=== PATIENT | female | born 1985 | race Caucasian/White ===

== ENCOUNTER → 2016-07-23 | Outpatient (CLI) | payer MEDICAID | END | disposition home or self-care (01) | LOC: LABWHC1 12:30 | PROVIDERS: ATTEND Internal Medicine Endocrinology, Diabetes & Metabolism | DX: D35.2 Benign neoplasm of pituitary gland (principal) | CPT/HCPCS: 36415; 84146 ==

== ENCOUNTER → 2016-10-07 | Outpatient (CLI) | payer MEDICAID ==
[2016-10-07 11:27] LABS: Prolactin 224.9 ng/mL (3.0-18.6)
== END | disposition home or self-care (01) ==
LOC: LABWHC1 10:10
PROVIDERS: ATTEND Internal Medicine Endocrinology, Diabetes & Metabolism
DX: D35.2 Benign neoplasm of pituitary gland (principal)
CPT/HCPCS: 36415; 82024; 82533; 84146; 84439; 84443

== ENCOUNTER → 2017-04-10 | Outpatient (CLI) | payer MEDICAID | END | disposition home or self-care (01) | LOC: LABWHC1 08:31 | PROVIDERS: ATTEND Internal Medicine Endocrinology, Diabetes & Metabolism | DX: D35.2 Benign neoplasm of pituitary gland (principal) | CPT/HCPCS: 36415; 84146 ==

== ENCOUNTER → 2017-08-25 | Outpatient (CLI) | payer MEDICAID ==
[2017-08-25 18:07] LABS: T4, Free (Free Thyroxine) 0.95 ng/dL (0.78-2.19)
== END | disposition home or self-care (01) ==
LOC: LABWHC1 16:46
PROVIDERS: ATTEND Internal Medicine Endocrinology, Diabetes & Metabolism
DX: D35.2 Benign neoplasm of pituitary gland (principal)
CPT/HCPCS: 36415; 84439; 84443

== ENCOUNTER → 2018-01-05 | Outpatient (CLI) | payer MEDICAID | END | disposition home or self-care (01) | LOC: LABWHC1 16:13 | PROVIDERS: ATTEND Internal Medicine Endocrinology, Diabetes & Metabolism | DX: D35.2 Benign neoplasm of pituitary gland (principal); E03.8 Other specified hypothyroidism | CPT/HCPCS: 36415; 84146; 84443 ==

== ENCOUNTER → 2018-07-15 | Outpatient (CLI) | payer MEDICAID ==
--- NOTE | 2018-07-15 10:58 | MR ---
EXAMINATION TYPE: MR pituitary wo/w con DATE OF EXAM: 07/15/2018 COMPARISON: 12/05/2011 MRI pituitary HISTORY: Benign neoplasm pituitary gland. History of elevated prolactin in 2011. TECHNIQUE: Multiplanar, multisequence images of the pituitary was performed without and with IV contrast, utiliz ing 5.5 mL intravenous Gadavist . FINDINGS: Within the right lateral aspect of the pituitary gland there is ar T2 hypointense and T1 hy pointense mass measuring approximately 5.3 x 5.7 x 5.6 cm. This abuts the right internal carotid mine ry and cavernous sinus. There is delayed enhancement of this mass in comparison with the surrounding pituitary and seen on sagittal postcontrast T1-weighted nonfat sat image 7. The remainder the pituita ry gland enhances homogeneously. There is no impression on the optic chiasm or extension beyond the s blue turcica. Hypothalamus is unremarkable as is the pituitary stalk. Limited images of the remainder of the surrounding brain parenchyma and calvarium are unremarkable. IMPRESSION: Right lateral pituitary microadenoma measuring up to 5.7 cm in maximum dimension abutting the cavernous sinus and right internal carotid artery without extension above the suprasellar cister n. No mass effect on the optic chiasm or pituitary stalk.
== END | disposition home or self-care (01) ==
LOC: RADMRIMAIN 07:49
PROVIDERS: ATTEND Internal Medicine Endocrinology, Diabetes & Metabolism
DX: D35.2 Benign neoplasm of pituitary gland (principal)
CPT/HCPCS: 70553; A9585

== ENCOUNTER → 2018-07-23 | Outpatient (CLI) | payer MEDICAID ==
[2018-07-23 19:46] LABS: T4, Free (Free Thyroxine) 1.6 ng/dL (0.80-1.80)
== END | disposition home or self-care (01) ==
LOC: LABWHC1 12:11
PROVIDERS: ATTEND Internal Medicine Endocrinology, Diabetes & Metabolism
DX: D35.2 Benign neoplasm of pituitary gland (principal)
CPT/HCPCS: 36415; 82024; 82533; 84146; 84305; 84439; 84443

== ENCOUNTER → 2018-08-27 | Outpatient (CLI) | payer MEDICAID ==
[2018-08-27 19:08] LABS: Progesterone 9.3 ng/mL
== END ==
LOC: LABWHC1 12:39
PROVIDERS: ATTEND Obstetrics & Gynecology
DX: E22.1 Hyperprolactinemia (principal); N91.2 Amenorrhea, unspecified
CPT/HCPCS: 36415; 82670; 84144; 84146

== ENCOUNTER → 2018-11-03 | Outpatient (CLI) | payer MEDICAID | END | disposition home or self-care (01) | LOC: LABWHC1 08:32 | PROVIDERS: ATTEND Internal Medicine Endocrinology, Diabetes & Metabolism | DX: D35.2 Benign neoplasm of pituitary gland (principal) | CPT/HCPCS: 36415; 84146; 84439 ==

== ENCOUNTER → 2019-10-14 | Outpatient (CLI) | payer MEDICAID ==
[2019-10-14 15:42] LABS: T4, Free (Free Thyroxine) 1.2 ng/dL (0.80-1.80)
[2019-10-14 16:12] LABS: Prolactin 195.4 ng/mL (2.8-29.2)
== END | disposition home or self-care (01) ==
LOC: LABWHC1 09:29
PROVIDERS: ATTEND Internal Medicine Endocrinology, Diabetes & Metabolism
DX: D35.2 Benign neoplasm of pituitary gland (principal)
CPT/HCPCS: 36415; 84146; 84439; 84480

== ENCOUNTER → 2020-03-19 | Outpatient (CLI) | payer MEDICAID | END | disposition home or self-care (01) | LOC: LABWHC1 12:44 | PROVIDERS: ATTEND Family Medicine | DX: Z20.828 Contact with and (suspected) exposure to other viral communicable diseases (principal) | CPT/HCPCS: U0003; C9803 ==

== ENCOUNTER → 2020-07-09 | Outpatient (CLI) | payer MEDICAID ==
[2020-07-09 14:47] LABS: T4, Free (Free Thyroxine) 1.8 ng/dL (0.80-1.80)
[2020-07-09 16:06] LABS: Prolactin 223.3 ng/mL (2.8-29.2)
== END | disposition home or self-care (01) ==
LOC: LABWHC1 08:09
PROVIDERS: ATTEND Internal Medicine Endocrinology, Diabetes & Metabolism
DX: E03.8 Other specified hypothyroidism (principal); D35.2 Benign neoplasm of pituitary gland
CPT/HCPCS: 36415; 82024; 82533; 84146; 84439; 84443

== ENCOUNTER → 2021-12-16 | Outpatient (CLI) | payer MEDICAID | END | disposition home or self-care (01) | LOC: LABWHC1 09:53 | PROVIDERS: ATTEND Internal Medicine Endocrinology, Diabetes & Metabolism | DX: D35.2 Benign neoplasm of pituitary gland (principal) | CPT/HCPCS: 36415; 84146 ==

== ENCOUNTER → 2022-04-22 | Outpatient (CLI) | payer MEDICAID ==
[2022-04-22 19:25] LABS: African American GFR (CKD) 94.7 (60.0-200.0); Albumin/Globulin Ratio 2.08 (1.60-3.17); Anion Gap 15.4 mmol/L (10.00-18.00); BUN/Creat Ratio 13.22 Ratio (12.00-20.00); Blood Urea Nitrogen 11.9 mg/dL (9.0-27.0); Carbon Dioxide 22.6 mmol/L (20.0-27.5); Globulin 2.4 g/dL (1.6-3.3); Non-African American GFR(CKD) 81.7 (60.0-200.0); Potassium 4.6 mmol/L (3.5-5.5); Prolactin 28.3 ng/mL (2.800-29.200); T4, Free (Free Thyroxine) 1.43 ng/dL (0.800-1.800); Total Bilirubin 0.6 mg/dL (0.30-1.20); Total Protein 7.4 g/dL (6.2-8.2)
== END | disposition home or self-care (01) ==
LOC: LABWHC1 13:02
PROVIDERS: ATTEND Internal Medicine Endocrinology, Diabetes & Metabolism
DX: D35.2 Benign neoplasm of pituitary gland (principal)
CPT/HCPCS: 36415; 80053; 82024; 82533; 84146; 84439; 84443; 84481

== ENCOUNTER → 2022-05-27 | Outpatient (CLI) | payer MEDICAID ==
[2022-05-27 10:31] LABS: Estradiol 30.1 pg/mL; Prolactin 51.9 ng/mL (2.800-29.200)
[2022-05-27 10:38] LABS: African American GFR (CKD) 115.2 (60.0-200.0); Albumin 4.4 g/dL (3.8-4.9); Albumin/Globulin Ratio 1.66 (1.60-3.17); Anion Gap 11.2 mmol/L (10.00-18.00); BUN/Creat Ratio 13.46 Ratio (12.00-20.00); Blood Urea Nitrogen 10.3 mg/dL (9.0-27.0); Calcium 9.6 mg/dL (8.7-10.3); Carbon Dioxide 21.9 mmol/L (20.0-27.5); Follicle Stimulating Hormone 3.1 mIU/mL; Globulin 2.7 g/dL (1.6-3.3); Luteinizing Hormone 1.6 mIU/mL; Non-African American GFR(CKD) 99.4 (60.0-200.0); Potassium 4.5 mmol/L (3.5-5.5); T4, Free (Free Thyroxine) 1.89 ng/dL (0.800-1.800); Total Bilirubin 0.8 mg/dL (0.30-1.20); Total Protein 7.1 g/dL (6.2-8.2)
== END | disposition home or self-care (01) ==
LOC: LABWHC1 07:06
PROVIDERS: ATTEND Internal Medicine Endocrinology, Diabetes & Metabolism
DX: D35.2 Benign neoplasm of pituitary gland (principal)
CPT/HCPCS: 36415; 80053; 82024; 82533; 82670; 83001; 83002; 84146; 84305; 84439; 84443

== ENCOUNTER → 2022-09-26 | Outpatient (CLI) | payer MEDICAID | END | disposition home or self-care (01) | LOC: LABWHC1 08:23 | PROVIDERS: ATTEND Internal Medicine Endocrinology, Diabetes & Metabolism | DX: D35.2 Benign neoplasm of pituitary gland (principal); E03.8 Other specified hypothyroidism ==

== ENCOUNTER → 2022-12-24 | Outpatient (CLI) | payer MEDICAID ==
[2022-12-24 12:02] LABS: HCT 42.6 % (37.2-46.3); HGB 14.4 d/dL (12.0-15.0); MCH 32.4 pg (27.0-32.0); MCHC 33.8 d/dL (32.0-37.0); MCV 95.9 FL (80.0-97.0); Mean Platelet Volume 11.5 FL (9.5-12.2); NRBC Per 100 WBC 0 X 10*3/uL (0.00-0.01); Platelet Count 233 X 10*3/uL (140-440); RBC 4.44 X 10*6/uL (4.10-5.20); RDW 12.2 % (11.5-14.5); WBC 5.47 X 10*3/uL (4.50-10.00)
[2022-12-24 12:17] LABS: ALT 12 U/L (8-44); AST 12 U/L (13-35); Albumin 4.7 d/dL (3.8-4.9); Albumin/Globulin Ratio 2.14 Ratio (1.60-3.17); Alkaline Phosphatase 55 U/L (41-126); BUN/Creat Ratio 15.67 Ratio (12.00-20.00); Blood Urea Nitrogen 14.1 mg/dL (9.0-27.0); Calcium 9.6 mg/dL (8.7-10.3); Carbon Dioxide 24.2 mmol/L (21.6-31.8); Chloride 106 mmol/L (96-109); Globulin 2.2 d/dL (1.6-3.3); Glucose 74 mg/dL (70-110); Potassium 4.5 mmol/L (3.5-5.5); Sodium 140 mmol/L (135-145); T4, Free (Free Thyroxine) 1.06 ng/dL (0.80-1.80); Total Bilirubin 1.2 mg/dL (0.3-1.2); Total Protein 6.9 d/dL (6.2-8.2)
== END | disposition home or self-care (01) ==
LOC: LABWHC1 09:13
PROVIDERS: ATTEND Internal Medicine Endocrinology, Diabetes & Metabolism
DX: D35.2 Benign neoplasm of pituitary gland (principal); E03.8 Other specified hypothyroidism
CPT/HCPCS: 36415; 80053; 82670; 83001; 83002; 84146; 84439; 84443; 85027

== ENCOUNTER → 2023-03-06 | Outpatient (CLI) | payer MEDICAID ==
[2023-03-06 16:50] LABS: Estradiol 82.4 pg/mL; T4, Free (Free Thyroxine) 1.35 ng/dL (0.80-1.80)
== END | disposition home or self-care (01) ==
LOC: LABWHC1 08:28
PROVIDERS: ATTEND Internal Medicine Endocrinology, Diabetes & Metabolism
DX: D35.2 Benign neoplasm of pituitary gland (principal)
CPT/HCPCS: 36415; 82670; 84146; 84439; 84443

== ENCOUNTER → 2023-06-15 | Outpatient (CLI) | payer MEDICAID ==
[2023-06-15 15:09] LABS: T4, Free (Free Thyroxine) 1.31 ng/dL (0.80-1.80)
[2023-06-15 15:49] LABS: Prolactin 49.6 ng/mL (2.800-29.200)
== END | disposition home or self-care (01) ==
LOC: LABWHC1 08:30
PROVIDERS: ATTEND Internal Medicine Endocrinology, Diabetes & Metabolism
DX: D35.2 Benign neoplasm of pituitary gland (principal)
CPT/HCPCS: 36415; 82024; 82533; 84146; 84439; 84443

== ENCOUNTER → 2023-10-21 | Outpatient (CLI) | payer MEDICAID ==
[2023-10-21 15:09] LABS: T4, Free (Free Thyroxine) 1.49 ng/dL (0.80-1.80)
[2023-10-21 16:17] LABS: Prolactin 47.8 ng/mL (2.800-29.200)
== END | disposition home or self-care (01) ==
LOC: LABWHC1 08:43
PROVIDERS: ATTEND Internal Medicine Endocrinology, Diabetes & Metabolism
DX: E03.8 Other specified hypothyroidism (principal); D35.2 Benign neoplasm of pituitary gland
CPT/HCPCS: 36415; 82533; 84146; 84305; 84439; 84443

== ENCOUNTER → 2024-02-15 | Outpatient (CLI) | payer MEDICAID ==
[2024-02-15 15:52] LABS: Prolactin 58.3 ng/mL (2.800-29.200)
== END | disposition home or self-care (01) ==
LOC: LABWHC1 08:39
PROVIDERS: ATTEND Internal Medicine Endocrinology, Diabetes & Metabolism
DX: D35.2 Benign neoplasm of pituitary gland (principal); E03.8 Other specified hypothyroidism
CPT/HCPCS: 36415; 84146; 84443

== ENCOUNTER → 2024-03-24 | Outpatient (CLI) | payer MEDICAID ==
[2024-03-24 17:27] LABS: T4, Free (Free Thyroxine) 1.61 ng/dL (0.80-1.80)
== END | disposition home or self-care (01) ==
LOC: LABWHC1 09:45
PROVIDERS: ATTEND Internal Medicine Endocrinology, Diabetes & Metabolism
DX: D35.2 Benign neoplasm of pituitary gland (principal)
CPT/HCPCS: 36415; 84436; 84439; 84443; 84480

== ENCOUNTER → 2024-04-22 | Outpatient (CLI) | payer MEDICAID ==
[2024-04-22 17:12] LABS: T4, Free (Free Thyroxine) 1.39 ng/dL (0.80-1.80)
[2024-04-22 17:27] LABS: Prolactin 84.1 ng/mL (2.800-29.200)
== END | disposition home or self-care (01) ==
LOC: LABWHC1 10:09
PROVIDERS: ATTEND Internal Medicine Endocrinology, Diabetes & Metabolism
DX: D35.2 Benign neoplasm of pituitary gland (principal)
CPT/HCPCS: 36415; 84146; 84436; 84439; 84443; 84480

== ENCOUNTER → 2024-05-12 | Outpatient (CLI) | payer MEDICAID ==
[2024-05-12 15:04] LABS: HCT 41.5 % (37.2-46.3); HGB 13.4 g/dL (12.0-15.0); MCH 30.2 pg (27.0-32.0); MCHC 32.3 g/dL (32.0-37.0); MCV 93.5 FL (80.0-97.0); Mean Platelet Volume 9.6 FL (9.5-12.2); NRBC Per 100 WBC 0 X 10*3/uL (0.00-0.01); Platelet Count 325 X 10*3/uL (140-440); RBC 4.44 X 10*6/uL (4.10-5.20); RDW 13.1 % (11.5-14.5); WBC 9.87 X 10*3/uL (4.50-10.00)
[2024-05-12 15:23] LABS: Hepatitis B Surface Antigen Nonreactive (Nonreactive); Hepatitis C IgG Antibody Nonreactive (Nonreactive)
[2024-05-12 21:06] LABS: HIV 2 AB Non-Reactive (Non-Reactive); HIV AB P24 Non-Reactive (Non-Reactive); HIV P24 AG Non-Reactive (Non-Reactive)
== END | disposition home or self-care (01) ==
LOC: LABWHC1 11:00
PROVIDERS: ATTEND Obstetrics & Gynecology Obstetrics
DX: Z34.81 Encounter for supervision of other normal pregnancy, first trimester (principal); R14.0 Abdominal distension (gaseous); N64.4 Mastodynia; R68.83 Chills (without fever); F41.8 Other specified anxiety disorders; L85.3 Xerosis cutis; R37 Sexual dysfunction, unspecified; R53.83 Other fatigue; L65.9 Nonscarring hair loss, unspecified; E06.3 Autoimmune thyroiditis; N95.1 Menopausal and female climacteric states; E03.9 Hypothyroidism, unspecified; M25.50 Pain in unspecified joint; R41.3 Other amnesia; E34.50 Androgen insensitivity syndrome, unspecified
CPT/HCPCS: 36415; 85027; 86762; 86780; 86803; 86850; 86900; 86901; 87340; 87390

== ENCOUNTER → 2024-05-31 | Outpatient (CLI) | payer MEDICAID ==
[2024-05-31 19:45] LABS: T4, Free (Free Thyroxine) 1.16 ng/dL (0.80-1.80)
== END | disposition home or self-care (01) ==
LOC: LABWHC1 14:53
PROVIDERS: ATTEND Internal Medicine Endocrinology, Diabetes & Metabolism
DX: E03.8 Other specified hypothyroidism (principal)
CPT/HCPCS: 36415; 84439; 84443; 84480

== ENCOUNTER → 2024-08-02 | Outpatient (CLI) | payer MEDICAID ==
[2024-08-02 13:12] LABS: T4, Free (Free Thyroxine) 1.35 ng/dL (0.80-1.80)
== END | disposition home or self-care (01) ==
LOC: LABWHC1 07:28
PROVIDERS: ATTEND Internal Medicine Endocrinology, Diabetes & Metabolism
DX: E03.8 Other specified hypothyroidism (principal)
CPT/HCPCS: 36415; 84439; 84443; 84480

== ENCOUNTER 2024-10-31 05:51 | Inpatient (IN) | payer MEDICAID ==
[2024-10-31] MEDS ORDERED: CARBOPROST TROMETHAMINE 250 MCG/ML 1 ML AMP IM PRN (06:28)
[2024-10-31] MEDS ORDERED: METHYLERGONOVINE 0.2 MG/ML 1 ML AMP IM PRN (06:28)
[2024-10-31] MEDS ORDERED: miSOPROStoL 200 MCG TAB PO PRN (06:28)
[2024-10-31] MEDS ORDERED: TERBUTALINE 1 MG/ML VIAL SQ PRN (06:28)
[2024-10-31] MEDS ORDERED: miSOPROStoL 200 MCG TAB RECTAL PRN (06:28)
[2024-10-31] MEDS ORDERED: TRANEXAMIC 1,000 MG/100ML-NACL 1,000 MG in EMPTY BAG 1 BAG IV PRN (06:28)
[2024-10-31] MEDS ORDERED: OXYTOCIN 10 UNIT/ML 1 ML VIAL IM PRN (06:28)
[2024-10-31] MEDS: LACTATED RINGERS 1,000 ML IV SCH (06:45)
[2024-10-31] MEDS: OXYTOCIN 30 UNITS/500 ML NS 30 UNIT in SALINE 1 500ML.BAG IV SCH (07:02)
[2024-10-31 07:17] LABS: Basophils # (A) 0.08 10*3/uL (0.00-0.10); Basophils % (A) 0.9 %; Eosinophils # (A) 0.06 10*3/uL (0.04-0.35); Eosinophils % (A) 0.7 %; HCT 37.1 % (37.2-46.3); HGB 13.2 g/dL (12.0-15.0); Lymphocytes % (A) 20.8 %; MCH 34.5 pg (27.0-32.0); MCHC 35.6 g/dL (32.0-37.0); MCV 96.9 fL (80.0-97.0); Mean Platelet Volume 11.6 fL (9.5-12.2); Monocytes # (A) 0.77 10*3/uL (0.20-1.00); Monocytes % (A) 8.4 %; Neutrophils # (A) 6.25 10*3/uL (1.80-7.70); Neutrophils % (A) 68.4 %; Platelet Count 238 10*3/uL (140-440); RBC 3.83 10*6/uL (4.10-5.20); RDW 13.5 % (11.5-14.5); WBC 9.13 10*3/uL (4.50-10.00)
[2024-10-31] MEDS ORDERED: SODIUM CHLORIDE 0.9% 250 ML BAG ONE (11:18)
[2024-10-31] MEDS ORDERED: fentaNYL (PF) 50 MCG/ML 5 ML AMP ONE (11:18)
[2024-10-31] MEDS ORDERED: ROPIVACAINE 5 MG/ML 30 ML VIAL ONE (11:18)
[2024-10-31] MEDS: LIDOCAINE 0.5% (PF) 5 MG/ML (50 ML SDV) SQ PRN (12:45)
[2024-10-31] MEDS ORDERED: LANOLIN CREAM 1 GM TUBE TOPICAL PRN (12:55)
[2024-10-31] MEDS ORDERED: BENZOCAINE/MENTHOL SPRAY 1 GM/SPRAY AEROSOL TOPICAL PRN (12:55)
[2024-10-31] MEDS ORDERED: SIMETHICONE 80 MG CHEWABLE PO PRN (12:55)
[2024-10-31] MEDS ORDERED: HYDROCORTISONE 2.5% RECTAL CREAM 30 GM TUBE RECTAL PRN (12:55)
[2024-10-31] MEDS ORDERED: diphenhydrAMINE 25 MG CAP PO PRN (12:55)
[2024-10-31] MEDS ORDERED: diphenhydrAMINE 50 MG/ML 1 ML VIAL IVP PRN ×2 (12:55)
[2024-10-31] MEDS ORDERED: ZOLPIDEM 5 MG TAB PO PRN (12:55)
[2024-10-31] MEDS ORDERED: diphenhydrAMINE 50 MG CAP PO PRN (12:55)
--- NOTE | 2024-10-31 12:59 | P.HPOB ---
History of Present Illness H&P Date: 10/31/24 Chief Complaint: IUP at 37 and 1 sevenths weeks, IUGR This is a 38-year-old 2 para 1-0-1-1 presented to labor and delivery at 37 and 1 sevenths weeks for scheduled induction of labor secondary to growth restriction. Patient has been receiving routine care complicated by growth restriction. Patient has a prior history of a section with her first secondary to breech presentation. Patient has been undergoing testing which has been reassuring. Given growth restriction recommendation for induction of labor. On blood work this patient is a blood type of A+, rubella status immune, hepatitis B surface engine negative, HIV negative, RPR nonreactive, group beta strep culture negative. Review of Systems Constitutional: Denies chills, Denies fatigue, Denies fever Ears, nose, mouth and throat: Denies headache Respiratory: Denies dyspnea Gastrointestinal: Denies constipation, Denies diarrhea, Denies nausea, Denies vomiting Genitourinary: Reports Past Medical History Past Medical History: Thyroid Disorder History of Any Multi-Drug Resistant Organisms: None Reported, MRSA Date of last positivie culture/infection: 03/16/2014 MDRO Source:: Right Foot Past Surgical History: Section Past Anesthesia/Blood Transfusion Reactions: No Reported Reaction Past Psychological History: No Psychological Hx Reported Smoking Status: Never smoker Past Alcohol Use History: None Reported Past Drug Use History: None Reported - Past Family History Mother Sister(s) Family Medical History: Blood Disorder Additional Family Medical History / Comment(s): heart disease Medications and Allergies Home Medications Medication Instructions Recorded Confirmed Type Aspirin [Adult Low Dose Aspirin EC] 1 tab PO DAILY 10/31/24 10/31/24 History Levothyroxine Sodium [Synthroid] 1 tab PO DAILY 10/31/24 10/31/24 History Vit No.179/Iron/Folic 1 tab PO DAILY 10/31/24 10/31/24 History [ Tablet] Allergies Allergy/AdvReac Type Severity Reaction Status Date / Time shellfish derived Allergy Rash/Hives Verified 10/31/24 06:23 vancomycin Allergy Rash/Hives Verified 10/31/24 06:23 Exam Osteopathic Statement: *. No significant issues noted on an osteopathic structural exam other than those noted in the History and Physical/Consult. Vital Signs Temp Pulse Resp BP Pulse Ox 10/31/24 06:22 97.4 F L 79 16 102/62 97 Intake and Output 10/30/24 10/31/24 10/31/24 22:59 06:59 14:59 Intake Total 11.433 Balance 11.433 Intake: Intake, IV Titration 11.433 Amount Oxytocin 30 Units/500 ml 11.433 Ns 30 unit In Saline 1 500ml.bag @ Per Protocol IV .Q0M [facility] Rx#:[id number] Other: Weight 66.678 kg Targeted physical exam is performed this date in general is well-nourished well- developed female in no acute distress, breathing is nonlabored, abdomen is gravid, on cervical exam she is 1/50/-3 station amniotomy is performed clear fluid is obtained. Vertex presentation is noted. heart tones noted be category 1 and she is tam irregularly. Results Result Diagrams: 10/31/24 06:10 Abnormal Lab Results - Last 24 Hours (Table) 10/31/24 Range/Units 06:10 RBC 3.83 L (4.10-5.20) 10*6/uL Hct 37.1 L (37.2-46.3) % MCH 34.5 H (27.0-32.0) pg Immature Gran # 0.07 H (0.00-0.04) 10*3/uL Assessment and Plan (1) 37 or more weeks gestation of Current Visit: Yes Status: Acute Code(s): JGU2844 - SNOMED Code(s): 72908787 (2) IUGR (intrauterine growth restriction) Current Visit: Yes Status: Acute Code(s): FZJ2590 - SNOMED Code(s): 41457105 (3) AMA (advanced maternal age) multigravida 35+ Current Visit: Yes Status: Acute Code(s): O09.529 - SUPERVISION OF ELDERLY MULTIGRAVIDA, UNSPECIFIED TRIMESTER SNOMED Code(s): 283242518 (4) Desires (vaginal after ) trial Current Visit: Yes Status: Acute Code(s): O34.219 - MATERNAL CARE FOR UNSP TYPE SCAR FROM PREVIOUS DEL SNOMED Code(s): 355985443 Plan: Admit to labor and delivery Pitocin induction of labor per protocol Epidural when appropriate Clear liquids as tolerated Anticipate spontaneous vaginal delivery
--- NOTE | 2024-10-31 13:01 | P.PROBDLV ---
Vaginal Delivery Note - . Vaginal Delivery Note: 38-year-old G2, P1 at 37 and 1 sevenths weeks that presents to labor and delivery for scheduled induction of labor secondary to growth restriction. Patient has a prior history of a section for breech presentation and desires trial of labor after . Patient was admitted and Pitocin induction of labor was begun per hospital protocol. Amniotomy was performed clear fluid was obtained. Patient made progress in labor becoming uncomfortable and requesting epidural. Epidural was placed without difficulty by the anesthesia department. Patient progressed to complete began pushing and had a normal spontaneous vaginal delivery of a viable female at 1235, weight of 4 pounds 10.1 ounces. After 2-minute delay the umbilical cord was doubly clamped and cut, spontaneous cry was noted at . Placenta was delivered spontaneously intact with a three-vessel cord being noted. On inspection of patient's vaginal vault first-degree vaginal laceration was appreciated. This was repaired in the usual fashion with 3-0 Rapide. Hemostasis was noted after repair. Bilateral hemostatic periurethral lacerations were appreciated. Uterus was noted be firm below the umbilicus. All counts were noted to be correct x 2 at the end of the delivery. Patient and tolerated delivery well and are resting comfortably.
[2024-10-31] MEDS: ACETAMINOPHEN TAB 500 MG TAB PO SCH (15:50)
[2024-10-31] MEDS: IBUPROFEN 800 MG TAB PO SCH (21:16)
[2024-10-31] MEDS: SENNOSIDES-DOCUSATE SODIUM 1 EACH TAB PO SCH (21:42)
[2024-11-01] MEDS: LEVOTHYROXINE 125 MCG TAB PO SCH (05:43)
--- NOTE | 2024-11-01 06:06 | P.PNOBGVD ---
Subjective - Subjective Principal diagnosis: day #1 Interval history: Patient is doing well . She is ambulating and voiding without difficulty. She is tolerating a regular diet without nausea or vomiting. Lochia is moderate. She is breast and bottlefeeding. Patient reports: Reports appetite normal, Reports voiding normally, Reports pain well controlled, Reports ambulating normally [place]: doing well, bottle feeding Objective - Latest Vital Signs Latest vital signs: Vital Signs Temp Pulse Resp BP Pulse Ox 11/01/24 00:19 98.2 F 69 15 103/67 96 10/31/24 20:10 98.1 F 72 14 110/70 98 10/31/24 15:28 97.1 F L 85 18 128/73 10/31/24 14:30 97.5 F L 78 18 123/60 10/31/24 14:15 18 112/62 10/31/24 14:00 71 105/59 10/31/24 13:45 70 128/64 10/31/24 13:30 81 116/61 10/31/24 13:15 97.1 F L 78 18 142/67 10/31/24 13:00 97.2 F L 78 18 118/64 10/31/24 12:45 97.7 F 80 18 120/66 10/31/24 06:22 97.4 F L 79 16 102/62 97 Intake and Output 10/31/24 10/31/24 11/01/24 14:59 22:59 06:59 Intake Total 11.433 Output Total 200 Balance -188.567 Intake: Intake, IV Titration 11.433 Amount Oxytocin 30 Units/500 ml 11.433 Ns 30 unit In Saline 1 500ml.bag @ Per Protocol IV .Q0M [facility] Rx#:[id number] Output: Output, Quantitative 200 Blood Loss Other: # Voids 1 2 - Exam Extremities: Present: normal, edema Abdomen: Present: normal appearance, soft Uterus: Present: normal, firm - Labs Labs: Abnormal Lab Results - Last 24 Hours (Table) 10/31/24 Range/Units 06:10 RBC 3.83 L (4.10-5.20) 10*6/uL Hct 37.1 L (37.2-46.3) % MCH 34.5 H (27.0-32.0) pg Immature Gran # 0.07 H (0.00-0.04) 10*3/uL Assessment and Plan (1) 37 or more weeks gestation of Current Visit: Yes Status: Acute Code(s): [id number] - SNOMED Code(s): 21269312 (2) IUGR (intrauterine growth restriction) Current Visit: Yes Status: Acute Code(s): DDS5010 - SNOMED Code(s): 79254795 (3) AMA (advanced maternal age) multigravida 35+ Current Visit: Yes Status: Acute Code(s): O09.529 - SUPERVISION OF ELDERLY MULTIGRAVIDA, UNSPECIFIED TRIMESTER SNOMED Code(s): 757899877 (4) Desires (vaginal after ) trial Current Visit: Yes Status: Acute Code(s): O34.219 - MATERNAL CARE FOR UNSP TYPE SCAR FROM PREVIOUS DEL SNOMED Code(s): 054100685 (5) , delivered Current Visit: Yes Status: Acute Code(s): O34.219 - MATERNAL CARE FOR UNSP TYPE SCAR FROM PREVIOUS DEL SNOMED Code(s): 651027508 Plan: Patient is doing well . Continue routine care Anticipate discharge home tomorrow
[2024-11-01] MEDS: PRENATAL VIT-IRON-FOLIC ACID 1 EACH TABLET PO SCH (17:20)
[2024-11-02 07:54] VITALS: BP 109/68; PULSE 65; RESP 16; TEMP 98
--- NOTE | 2024-11-02 08:38 | P.DS ---
Providers Date of admission: 10/31/24 05:51 Expected date of discharge: 11/02/24 Attending physician: Keke Lujan Primary care physician: Stated None - Discharge Diagnosis(es) (1) 37 or more weeks gestation of Current Visit: Yes Status: Acute (2) IUGR (intrauterine growth restriction) Current Visit: Yes Status: Acute (3) AMA (advanced maternal age) multigravida 35+ Current Visit: Yes Status: Acute (4) Desires (vaginal after ) trial Current Visit: Yes Status: Acute (5) , delivered Current Visit: Yes Status: Acute Hospital Course: 38-year-old 2 now para 2 that presents to labor and delivery on 10/31 for scheduled induction of labor secondary to growth restriction. Patient is 37 and 1 sevenths weeks with scheduled due date of 11/20. Patient had been receiving routine care which had been complicated by growth restriction, patient was counseled on need for delivery at 37 weeks secondary to growth restriction. Patient has a prior history of a section secondary to breech presentation and desires a trial of labor after . Patient was admitted to labor and delivery and Pitocin induction of labor was begun, amniotomy was performed and clear fluid was obtained. Patient made quick progress through labor eventually becoming uncomfortable and requesting epidural. Soon after epidural was placed she was noted to be completely dilated. She began pushing and had a normal spontaneous vaginal delivery of a viable female infant at 1235, weight of 4 pounds 10.1 ounces, Apgars of 7 and 8 at 1 and 5 minutes respectively. Patient did sustain a first- degree vaginal laceration which was repaired in the usual fashion with 3-0 Rapide. Patient's course has been uneventful. In this day #2 she is ambulating and voiding without difficulty. She is tolerating a regular diet without nausea or vomiting. States her pain is well-controlled. She denies concerns. Infant has been doing well and we are awaiting pediatric discharge. Patient Condition at Discharge: Good Plan - Discharge Summary New Discharge Prescriptions: No Action Aspirin [Adult Low Dose Aspirin EC] 1 tab PO DAILY Vit No.179/Iron/Folic [ Tablet] 1 tab PO DAILY Levothyroxine Sodium [Synthroid] 1 tab PO DAILY Discharge Medication List Aspirin [Adult Low Dose Aspirin EC] 1 tab PO DAILY 10/31/24 [History] Levothyroxine Sodium [Synthroid] 1 tab PO DAILY 10/31/24 [History] Vit No.179/Iron/Folic [ Tablet] 1 tab PO DAILY 10/31/24 [History] Follow up Appointment(s)/Referral(s): Keke Lujan DO [Doctor of Osteopathic Medicine] - 12/12/24 2:15 pm Patient Instructions/Handouts: Vaginal Delivery (DC), Vaginal Delivery (GEN) Activity/Diet/Wound Care/Special Instructions: No tub baths or intercourse until 6 weeks . Uvou-omp-pflraau ibuprofen 600 mg or 3 tablets every 6 hours as needed for pain, routine check to be scheduled at 6 weeks. Should she have any concerns prior to this appointment she is urged to call the office and be seen prior. Discharge Disposition: HOME SELF-CARE
== END 2024-11-02 12:17 | disposition home or self-care (01) | DRG 807 ==
LOC: 4FBP 05:51
PROVIDERS: ADMIT Obstetrics & Gynecology Obstetrics; ATTEND Obstetrics & Gynecology Obstetrics
PROC: 3E033VJ Introduction of Other Hormone into Peripheral Vein, Percutaneous Approach (ICD-10-PCS; principal; 2024-10-31)
PROC: 10E0XZZ Delivery of Products of Conception, External Approach (ICD-10-PCS; principal; 2024-10-31)
PROC: 0HQ9XZZ Repair Perineum Skin, External Approach (ICD-10-PCS; principal; 2024-10-31)
PROC: 10907ZC Drainage of Amniotic Fluid, Therapeutic from Products of Conception, Via Natural or Artificial Opening (ICD-10-PCS; principal; 2024-10-31)
PROC: 0UQMXZZ Repair Vulva, External Approach (ICD-10-PCS; principal; 2024-10-31)
DX: O36.5930 Maternal care for other known or suspected poor fetal growth, third trimester, not applicable or unspecified (principal); E07.9 Disorder of thyroid, unspecified; O34.219 Maternal care for unspecified type scar from previous cesarean delivery; O99.284 Endocrine, nutritional and metabolic diseases complicating childbirth; O70.0 First degree perineal laceration during delivery; O71.82 Other specified trauma to perineum and vulva; Z88.1 Allergy status to other antibiotic agents; Z79.82 Long term (current) use of aspirin; Z79.890 Hormone replacement therapy; Z3A.37 37 weeks gestation of pregnancy; Z37.0 Single live birth
CPT/HCPCS: 85025; 86850; 86900; 86901; 88307

== ENCOUNTER → 2024-12-08 | Outpatient (CLI) | payer MEDICAID ==
[2024-12-08 15:37] LABS: T4, Free (Free Thyroxine) 2.1 ng/dL (0.80-1.80)
== END | disposition home or self-care (01) ==
LOC: LABWHC1 12:24
PROVIDERS: ATTEND Internal Medicine Endocrinology, Diabetes & Metabolism
DX: E03.8 Other specified hypothyroidism (principal)
CPT/HCPCS: 36415; 82024; 82533; 84439; 84443